=== PATIENT | male | born 1955 ===

== ENCOUNTER 2017-01-22 20:05 | Emergency (ER) | payer MEDICARE ==
[~2017-01-22] VITALS: Ht 172.7 cm; Wt 118.0 kg
--- NOTE | 2017-01-22 20:30 | NUR ---
Pt arrived by EMS at 2013, transferred to bed. Code Blue in progress. Family's wishes no CPR, no intubation. Pt had nasal trumpet present in right nare with ambubag in use. No breath sounds upon admission. EJ per EMS to left neck, NS running. Rectal temp of 97.5 obtained. Family in room at 2019. Dr. Beach present upon admit. Changed to NRB mask at 15L at 2024. Zero respirations by patient at 2028. Pt pronounced by Dr. Beach at 2029. Those present during code: Annie RN, Erin Cruz RN, Dana Ghosh RN, Deshaun, RT, Dr. Beach and EMS crew.
--- NOTE | 2017-01-22 20:45 | NUR ---
Erin Whalen RN/Director Of Field Sales made call to [facility] regarding of pt. 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
--- NOTE | 2017-01-23 00:55 | NUR ---
Pt's brother and DPOA called asking about pts cell phone RN did call and check with the home but they did not find a cell phone but will check again in the am.
== END 2017-01-22 21:30 | disposition expired ==
LOC: ED 20:08
DX: I46.9 Cardiac arrest, cause unspecified (principal)
CPT/HCPCS: 92950; 99282; 99283

== ENCOUNTER → 2017-01-22 | Outpatient (CLI) | payer MEDICARE | LOC: EMS 20:00 | PROVIDERS: ATTEND Emergency Medicine | DX: R41.82 Altered mental status, unspecified (principal) ==